=== PATIENT | male | born 1945 | race Caucasian/White ===

== ENCOUNTER 2018-11-01 02:45 | Inpatient (IN) | payer MEDICARE ==
[2018-11-01] VITALS (7 sets, daily range): BP systolic 121–134; BP diastolic 76–98
[~2018-11-01] VITALS: Ht 167.6 cm; Wt 647.3 kg
[2018-11-01] MEDS ORDERED: PERTUSS(ACELL),DIPH,TET VAC/PF 0.5 ML VIAL IM ONE (04:00)
[2018-11-01 04:23] LABS: BASOPHILS % (AUTO) 1.2 % (0.0-2.0); EOSINOPHILS % (AUTO) 2.5 % (1.0-6.0); HEMATOCRIT 40.5 % (41-53); HEMOGLOBIN 13.1 g/dL (13.5-17.5); LYMPHOCYTES % (AUTO) 25.2 % (22.0-44.0); MEAN CORPUSCULAR HEMOGLOBIN 33.5 pg (26.0-34.0); MEAN CORPUSCULAR HGB CONC 32.3 G/dL (31.0-37.0); MEAN CORPUSCULAR VOLUME 104 fL (80-100); MONOCYTES # (AUTO) 0.7 K/uL (0.1-1.0); MONOCYTES % (AUTO) 8.3 % (2.0-9.0); NEUTROPHILS % (AUTO) 62.8 % (40.0-70.0); PLATELET COUNT (AUTO) 418 K/uL (150-450); RED BLOOD CELL COUNT(AUTO) 3.92 MIL/uL (4.50-5.90); RED CELL DISTRIBUTION WIDTH 17.2 % (11.5-14.5)
[2018-11-01 04:35] LABS: ANION GAP 13 mmol/L (8-16); CALCIUM, TOTAL 9.1 mg/dL (8.8-10.5); CARBON DIOXIDE 24 mmol/L (22-29); CHLORIDE 108 mmol/L (98-107); GLUCOSE,RANDOM 92 mg/dL (70-110); POTASSIUM 3.8 mmol/L (3.5-5.1); SODIUM SERUM 145 mmol/L (136-145); UREA NITROGEN, BLOOD 7 mg/dL (7-18)
[2018-11-01 04:37] LABS: AMPHET/METH SCREEN,URINE NEGATIVE (NEGATIVE); BARBITURATE SCREEN, URINE NEGATIVE (NEGATIVE); BENZODIAZEPINES SCREEN,URINE POSITIVE (NEGATIVE); CANNABINOID SCREEN,URINE NEGATIVE (NEGATIVE); COCAINE SCREEN,URINE NEGATIVE (NEGATIVE); METHADONE SCREEN, URINE NEGATIVE (NEGATIVE); OPIATE SCREEN,URINE NEGATIVE (NEGATIVE)
[2018-11-01 04:37] LABS: GLOMERULAR FILTR. RATE CALC > 60 mL/min (>60)
[2018-11-01 04:38] LABS: PHENCYCLIDINE SCREEN,URINE NEGATIVE (NEGATIVE)
[2018-11-01 04:41] LABS: ALANINE AMINOTRANSFERASE 45 U/L (12-78); ALBUMIN 3.5 g/dL (3.4-5.0); ALKALINE PHOSPHATASE 107 U/L (46-116); ASPARTATE AMINOTRANSFERASE 40 U/L (15-37); BILIRUBIN,TOTAL 0.9 mg/dL (0.1-1.0); TOTAL PROTEIN, SERUM 7.2 g/dL (6.4-8.2)
[2018-11-01] MEDS ORDERED: ZOLPIDEM TARTRATE 10 MG TABLET PO PRN (04:45)
[2018-11-01] MEDS: LORazepam 2 MG TABLET PO PRN ×2 (10:46→16:15)
[2018-11-01] MEDS: HALOPERIDOL 5 MG TABLET PO PRN ×2 (10:46→16:15)
[2018-11-01] MEDS ORDERED: LORazepam 2 MG TABLET PO PRN (13:15)
[2018-11-01] MEDS: LORazepam 2 MG TABLET PO SCH (16:15)
[2018-11-01] MEDS: GABAPENTIN 300 MG CAPSULE PO SCH (16:15)
[2018-11-02] VITALS (7 sets, daily range): BP systolic 106–122; BP diastolic 50–86
[2018-11-02 06:44] LABS: CHOL/HDL RATIO 2.6 (4.2-7.3)
[2018-11-02] MEDS: GABAPENTIN 300 MG CAPSULE PO SCH ×3 (09:00→16:26)
[2018-11-02] MEDS: FOLIC ACID 1 MG TABLET PO SCH (09:00)
[2018-11-02] MEDS: THIAMINE HCL 100 MG TABLET PO SCH (09:01)
[2018-11-02] MEDS: LORazepam 2 MG TABLET PO SCH ×4 (09:02→20:51)
[2018-11-02] MEDS ORDERED: ACETAMINOPHEN 325 MG TABLET PO PRN (09:30)
[2018-11-02] MEDS ORDERED: ONDANSETRON HCL 4 MG TABLET PO PRN (09:30)
[2018-11-02] MEDS ORDERED: MAGNESIUM HYDROXIDE SUSPENSION 30 ML UDCUP PO PRN (09:30)
[2018-11-02] MEDS ORDERED: LOPERAMIDE HCL 2 MG CAPSULE PO PRN (09:30)
[2018-11-02] MEDS ORDERED: MAG HYDROX/AL HYDROX/SIMETH ES 30 ML SUSPENSION UDCUP PO PRN (09:30)
[2018-11-02] MEDS ORDERED: GuaiFENesin/D-METHORPHAN [SUGAR-FREE] 200-20MG/10 ML SYRUP UDCUP PO PRN (09:30)
[2018-11-02] MEDS ORDERED: PETROLATUM,WHITE 28 GM JELLY TP PRN (09:30)
[2018-11-02] MEDS ORDERED: DOCUSATE SODIUM 100 MG CAPSULE PO PRN (09:30)
[2018-11-02] MEDS ORDERED: ALBUTEROL SULFATE HFA 90 MCG/PUFF 8 GM INHALER IH PRN (09:30)
[2018-11-02] MEDS ORDERED: NICOTINE 14 MG/24 HOUR PATCH TD PRN (09:30)
[2018-11-02] MEDS ORDERED: CloNIDine HCL 0.1 MG TABLET PO PRN (09:30)
[2018-11-02] MEDS: IBUPROFEN 400 MG TABLET PO PRN (09:52)
[2018-11-02] MEDS ORDERED: TAMS-1 PO (09:53)
[2018-11-02] MEDS: TAMSULOSIN HCL 0.4 MG CAPSULE PO SCH ×2 (12:08→16:26)
[2018-11-03 00:47] VITALS: BP 113/77
[2018-11-03] MEDS: IBUPROFEN 400 MG TABLET PO PRN (05:51)
[2018-11-03] MEDS: GABAPENTIN 300 MG CAPSULE PO SCH ×3 (08:03→16:23)
[2018-11-03] MEDS: TAMSULOSIN HCL 0.4 MG CAPSULE PO SCH ×2 (08:03→16:23)
[2018-11-03] MEDS: FOLIC ACID 1 MG TABLET PO SCH (08:03)
[2018-11-03] MEDS: LORazepam 2 MG TABLET PO SCH (08:03)
[2018-11-03] MEDS: THIAMINE HCL 100 MG TABLET PO SCH (08:03)
[2018-11-03 08:38] VITALS: BP 116/77
[2018-11-03] MEDS: BuPROPion HCL XL 150 MG ER TABLET PO SCH (12:18)
[2018-11-03 16:16] VITALS: BP 117/78
[2018-11-04 02:28] VITALS: BP 124/87
[2018-11-04] MEDS ORDERED: LORazepam 1 MG TABLET PO PRN (07:00)
[2018-11-04 08:33] VITALS: BP 112/84
[2018-11-04] MEDS: GABAPENTIN 300 MG CAPSULE PO SCH ×2 (08:44→12:14)
[2018-11-04] MEDS: TAMSULOSIN HCL 0.4 MG CAPSULE PO SCH (08:44)
[2018-11-04] MEDS: BuPROPion HCL XL 150 MG ER TABLET PO SCH (08:45)
[2018-11-04] MEDS ORDERED: LORazepam 1 MG TABLET PO SCH (09:00)
[2018-11-04] MEDS ORDERED: BUPR-93 PO (10:35)
[2018-11-04] MEDS ORDERED: GABA-531 PO (10:35)
[2018-11-05] MEDS ORDERED: LORazepam 1 MG TABLET PO PRN (07:00)
== END 2018-11-04 13:45 | disposition home or self-care (01) | DRG 881 ==
LOC: EMS 02:48 → 3EX 05:00 → 3EC 15:11 → 3EX 11-02 00:14
PROVIDERS: ADMIT Psychiatry & Neurology Psychiatry; ATTEND Psychiatry & Neurology Psychiatry
DX: F32.9 Major depressive disorder, single episode, unspecified (principal); R45.851 Suicidal ideations; D64.9 Anemia, unspecified; F10.10 Alcohol abuse, uncomplicated; F94.0 Selective mutism; S41.111A Laceration without foreign body of right upper arm, initial encounter; S51.812A Laceration without foreign body of left forearm, initial encounter; Y90.6 Blood alcohol level of 120-199 mg/100 ml; F19.10 Other psychoactive substance abuse, uncomplicated; M17.10 Unilateral primary osteoarthritis, unspecified knee; X78.1XXA Intentional self-harm by knife, initial encounter; Y93.89 Activity, other specified; Y92.89 Other specified places as the place of occurrence of the external cause; Y99.8 Other external cause status; Z59.0 Homelessness; Z90.3 Acquired absence of stomach [part of]; Z71.41 Alcohol abuse counseling and surveillance of alcoholic; Z71.51 Drug abuse counseling and surveillance of drug abuser
CPT/HCPCS: 90715; G0378; G0480

== ENCOUNTER 2018-11-19 18:19 | Emergency (ER) | payer MEDICARE ==
[~2018-11-19] VITALS: Ht 167.6 cm; Wt 68.2 kg
[~2018-11-19 18:19] MED LIST: BUPR-93 PO; GABA-531 PO; TAMS-1 PO
[2018-11-19 21:49] LABS: BASOPHILS % (AUTO) 1.1 % (0.0-2.0); EOSINOPHILS % (AUTO) 5.1 % (1.0-6.0); HEMATOCRIT 38.8 % (41-53); HEMOGLOBIN 12.8 g/dL (13.5-17.5); LYMPHOCYTES # (AUTO) 2.7 K/uL (1.0-4.8); LYMPHOCYTES % (AUTO) 48.3 % (22.0-44.0); MEAN CORPUSCULAR HEMOGLOBIN 33.7 pg (26.0-34.0); MEAN CORPUSCULAR HGB CONC 32.9 G/dL (31.0-37.0); MEAN CORPUSCULAR VOLUME 102 fL (80-100); MONOCYTES # (AUTO) 0.6 K/uL (0.1-1.0); MONOCYTES % (AUTO) 10.7 % (2.0-9.0); NEUTROPHILS # (AUTO) 1.9 K/uL (1.8-7.7); NEUTROPHILS % (AUTO) 34.8 % (40.0-70.0); PLATELET COUNT (AUTO) 190 K/uL (150-450); RED BLOOD CELL COUNT(AUTO) 3.79 MIL/uL (4.50-5.90); RED CELL DISTRIBUTION WIDTH 16.6 % (11.5-14.5)
[2018-11-19 22:04] LABS: ANION GAP 10 mmol/L (8-16); CALCIUM, TOTAL 8.9 mg/dL (8.8-10.5); CARBON DIOXIDE 23 mmol/L (22-29); CHLORIDE 108 mmol/L (98-107); CREATININE 0.91 mg/dL (0.60-1.30); GLUCOSE,RANDOM 85 mg/dL (70-110); SODIUM SERUM 141 mmol/L (136-145); UREA NITROGEN, BLOOD 11 mg/dL (7-18)
[2018-11-19 22:09] LABS: ALANINE AMINOTRANSFERASE 28 U/L (12-78); ALBUMIN 3.7 g/dL (3.4-5.0); ALKALINE PHOSPHATASE 111 U/L (46-116); ASPARTATE AMINOTRANSFERASE 33 U/L (15-37); BILIRUBIN,TOTAL 0.5 mg/dL (0.1-1.0)
[2018-11-19 22:10] LABS: GLOMERULAR FILTR. RATE CALC > 60 mL/min (>60)
[2018-11-19 22:27] LABS: AMPHET/METH SCREEN,URINE NEGATIVE (NEGATIVE); BARBITURATE SCREEN, URINE NEGATIVE (NEGATIVE); BENZODIAZEPINES SCREEN,URINE NEGATIVE (NEGATIVE); CANNABINOID SCREEN,URINE NEGATIVE (NEGATIVE); COCAINE SCREEN,URINE NEGATIVE (NEGATIVE); METHADONE SCREEN, URINE NEGATIVE (NEGATIVE); OPIATE SCREEN,URINE NEGATIVE (NEGATIVE)
[2018-11-19 22:28] LABS: PHENCYCLIDINE SCREEN,URINE NEGATIVE (NEGATIVE)
[2018-11-20 04:56] VITALS: BP 113/57
[2018-11-20] MEDS ORDERED: ChlordiazePOXIDE HCL 25 MG CAPSULE PO ONE (05:00)
== END 2018-11-20 05:20 | disposition home or self-care (01) ==
LOC: EMS 18:20
DX: F10.20 Alcohol dependence, uncomplicated (principal); M25.561 Pain in right knee; I10 Essential (primary) hypertension; G43.909 Migraine, unspecified, not intractable, without status migrainosus; G89.29 Other chronic pain; Z59.0 Homelessness; Y90.7 Blood alcohol level of 200-239 mg/100 ml
CPT/HCPCS: 36415; 80053; 80307; 85025; 99283; G0480

== ENCOUNTER 2018-11-28 00:52 | Emergency (ER) | payer MEDICARE ==
[~2018-11-28] VITALS: Ht 167.6 cm; Wt 70.0 kg
[2018-11-28] MEDS ORDERED: SODIUM CHLORIDE 0.9% 1,000 ML IV ONE (02:45)
[2018-11-28 03:11] LABS: BASOPHILS % (AUTO) 1.2 % (0.0-2.0); EOSINOPHILS % (AUTO) 4.9 % (1.0-6.0); HEMATOCRIT 39.2 % (41-53); HEMOGLOBIN 12.9 g/dL (13.5-17.5); LYMPHOCYTES # (AUTO) 2.4 K/uL (1.0-4.8); LYMPHOCYTES % (AUTO) 35.8 % (22.0-44.0); MEAN CORPUSCULAR HEMOGLOBIN 33.9 pg (26.0-34.0); MEAN CORPUSCULAR VOLUME 103 fL (80-100); MONOCYTES # (AUTO) 0.6 K/uL (0.1-1.0); MONOCYTES % (AUTO) 9.1 % (2.0-9.0); NEUTROPHILS # (AUTO) 3.2 K/uL (1.8-7.7); PLATELET COUNT (AUTO) 219 K/uL (150-450); RED BLOOD CELL COUNT(AUTO) 3.82 MIL/uL (4.50-5.90); RED CELL DISTRIBUTION WIDTH 16.7 % (11.5-14.5)
[2018-11-28 03:29] LABS: ANION GAP 13 mmol/L (8-16); CALCIUM, TOTAL 8.8 mg/dL (8.8-10.5); CARBON DIOXIDE 23 mmol/L (22-29); CHLORIDE 107 mmol/L (98-107); CREATININE 0.75 mg/dL (0.60-1.30); GLOMERULAR FILTR. RATE CALC > 60 mL/min (>60); GLUCOSE,RANDOM 96 mg/dL (70-110); POTASSIUM 3.4 mmol/L (3.5-5.1); SODIUM SERUM 143 mmol/L (136-145); UREA NITROGEN, BLOOD 8 mg/dL (7-18)
[2018-11-28] MEDS ORDERED: THIAMINE HCL 100 MG/ML 2ML VIAL IVP ONE (03:30)
[2018-11-28 03:44] LABS: ALANINE AMINOTRANSFERASE 24 U/L (12-78); ALBUMIN 3.5 g/dL (3.4-5.0); ALKALINE PHOSPHATASE 99 U/L (46-116); ASPARTATE AMINOTRANSFERASE 28 U/L (15-37); BILIRUBIN,TOTAL 0.3 mg/dL (0.1-1.0); TOTAL PROTEIN, SERUM 7.1 g/dL (6.4-8.2)
[2018-11-28] MEDS ORDERED: MAGNESIUM SULFATE 2 GM/WATER 50 ML IV ONE (04:15)
[2018-11-28 08:16] VITALS: BP 116/76
== END 2018-11-28 09:00 | disposition home or self-care (01) ==
LOC: EMS 00:54
DX: F10.129 Alcohol abuse with intoxication, unspecified (principal); E83.42 Hypomagnesemia; I10 Essential (primary) hypertension; G43.909 Migraine, unspecified, not intractable, without status migrainosus; Z79.899 Other long term (current) drug therapy; Y90.6 Blood alcohol level of 120-199 mg/100 ml
CPT/HCPCS: 36415; 70450; 80053; 83735; 85025; 96365; 96366; 96375; 99284; G0480; J3411; J3475; J7030

== ENCOUNTER 2018-12-17 14:18 | Emergency (ER) | payer MEDICARE ==
[~2018-12-17] VITALS: Ht 190.5 cm; Wt 68.2 kg
[2018-12-17] MEDS ORDERED: LIB25 PO (14:35)
[2018-12-17] MEDS ORDERED: DOXYCYCLINE HYCLATE 100 MG CAPSULE PO ONE (14:45)
[2018-12-17] MEDS ORDERED: ChlordiazePOXIDE HCL 25 MG CAPSULE PO ONE (14:45)
[2018-12-17 15:08] LABS: BASOPHILS % (AUTO) 1.9 % (0.0-2.0); LYMPHOCYTES # (AUTO) 2.4 K/uL (1.0-4.8); LYMPHOCYTES % (AUTO) 41.7 % (22.0-44.0); MEAN CORPUSCULAR HGB CONC 32.3 G/dL (31.0-37.0); MEAN CORPUSCULAR VOLUME 102 fL (80-100); MONOCYTES # (AUTO) 0.7 K/uL (0.1-1.0); MONOCYTES % (AUTO) 12.4 % (2.0-9.0); NEUTROPHILS # (AUTO) 2.2 K/uL (1.8-7.7); PLATELET COUNT (AUTO) 191 K/uL (150-450); RED BLOOD CELL COUNT(AUTO) 3.62 MIL/uL (4.50-5.90); RED CELL DISTRIBUTION WIDTH 15.2 % (11.5-14.5)
[2018-12-17 15:22] LABS: ANION GAP 15 mmol/L (8-16); CALCIUM, TOTAL 8.5 mg/dL (8.8-10.5); CARBON DIOXIDE 19 mmol/L (22-29); CHLORIDE 107 mmol/L (98-107); CREATININE 0.83 mg/dL (0.60-1.30); GLUCOSE,RANDOM 98 mg/dL (70-110); POTASSIUM 3.8 mmol/L (3.5-5.1); SODIUM SERUM 141 mmol/L (136-145); UREA NITROGEN, BLOOD 7 mg/dL (7-18)
[2018-12-17 15:25] LABS: GLOMERULAR FILTR. RATE CALC > 60 mL/min (>60)
[2018-12-17 15:30] LABS: ALANINE AMINOTRANSFERASE 33 U/L (12-78); ALBUMIN 3.6 g/dL (3.4-5.0); ALKALINE PHOSPHATASE 97 U/L (46-116); ASPARTATE AMINOTRANSFERASE 38 U/L (15-37); BILIRUBIN,TOTAL 0.5 mg/dL (0.1-1.0); TOTAL PROTEIN, SERUM 6.7 g/dL (6.4-8.2)
[2018-12-17] MEDS ORDERED: KETOROLAC TROMETHAMINE 30 MG/ML VIAL IM ONE (16:15)
[2018-12-17 16:25] VITALS: BP 96/59
== END 2018-12-17 16:25 | disposition home or self-care (01) ==
LOC: EMS 14:19
DX: L03.116 Cellulitis of left lower limb (principal); F10.10 Alcohol abuse, uncomplicated; F17.210 Nicotine dependence, cigarettes, uncomplicated; I10 Essential (primary) hypertension; G43.909 Migraine, unspecified, not intractable, without status migrainosus; Z90.89 Acquired absence of other organs
CPT/HCPCS: 36415; 80053; 85025; 96372; 99283; 99406; J1885

== ENCOUNTER 2020-03-11 16:46 | Emergency (ER) | payer MEDICARE ==
[~2020-03-11 16:46] MED LIST changes: -BUPR-93 PO; -GABA-531 PO; +LIB25 PO; -TAMS-1 PO
== END 2020-03-11 17:42 | disposition left against medical advice (07) ==
LOC: EMS 16:47
DX: R00.2 Palpitations (principal); I10 Essential (primary) hypertension; G43.909 Migraine, unspecified, not intractable, without status migrainosus; Z90.89 Acquired absence of other organs